=== PATIENT | female | born 2000 ===

== ENCOUNTER 2022-04-08 13:23 | Emergency (ER) | payer MEDICAID ==
[~2022-04-08] VITALS: Ht 162.6 cm; Wt 54.0 kg
[2022-04-08 13:39] VITALS: BP 122/72
== END 2022-04-08 15:24 | disposition home or self-care (01) ==
LOC: EMS 13:23
DX: D17.1 Benign lipomatous neoplasm of skin and subcutaneous tissue of trunk (principal)
CPT/HCPCS: 99281; Z7502